=== PATIENT | male | born 1975 | race African-American/Black ===

== ENCOUNTER 2018-08-12 10:31 | Emergency (ER) | payer SELFPAY | END 2018-08-12 11:11 | disposition home or self-care (01) | LOC: SCSER 10:31 | DX: K43.9 Ventral hernia without obstruction or gangrene (principal); I10 Essential (primary) hypertension; Z86.73 Personal history of transient ischemic attack (TIA), and cerebral infarction without residual deficits; F17.210 Nicotine dependence, cigarettes, uncomplicated | CPT/HCPCS: 99283 ==

== ENCOUNTER 2020-02-18 05:55 | Day surgery (SDC) | payer SELFPAY ==
[2020-02-17 09:45] VITALS: BMI 38.2
[2020-02-18] MEDS ORDERED: Fentanyl 100 MCG/2 ML VIAL ONE ×4 (06:19→09:11)
[2020-02-18] MEDS ORDERED: Lidocaine 1% w/Epinephrine 1:100K 20 ML VIAL ONE (06:33)
[2020-02-18] MEDS ORDERED: Bupivacaine 0.25% HCL 30 ML VIAL ONE (06:33)
[2020-02-18] MEDS ORDERED: Dexmedetomidine 200 MCG/2 ML VIAL ONE (07:28)
[2020-02-18] MEDS ORDERED: SUGAMMADEX SODIUM 200 MG/2 ML VIAL ONE (08:30)
--- NOTE | 2020-02-18 08:53 | OP ---
DATE OF PROCEDURE: 02/18/2020 PREOPERATIVE DIAGNOSES: Ventral hernia and umbilical hernia. POSTOPERATIVE DIAGNOSES: Ventral hernia and umbilical hernia. PROCEDURES PERFORMED: Ventral and umbilical hernia repair, laparoscopic da [employer] robot. ANESTHESIA: General. ESTIMATED BLOOD LOSS: Minimal. COMPLICATIONS: None. DESCRIPTION OF PROCEDURE: The patient was taken to the operating room and laid supine on the operating room table. After general anesthetic was obtained, a Neves was placed. The abdomen was shaved, prepped, and draped in a sterile fashion. Left subcostal 5-mm Optiview trocar was placed in usual fashion without injury. High-flow pneumoperitoneum was obtained. Left and right abdominal 8-mm robot ports were placed. The 5-mm subcostal switched out to 11 mm balloon trocar. All ports were docked to the robot. Surgeon goes to the console. The falciform was taken down exposing an epigastric hernia. The preperitoneal fat was dissected off the back of the fascia. Dissection was taken down all the way toward the umbilicus, where the posterior peritoneum was pulled down exposing two additional small hernias and all the preperitoneal fat was reduced out of the hernias. The hernias were closed using running 0 V-Loc. It took two sutures to close all three holes. These were removed from the abdomen and accounted for. An 8-cm Ventralex ST mesh was marked and brought into the sterile field and placed in the abdomen. The exposed mesh portion was placed up against the posterior fascia. The nonadherent side was left down against the abdominal contents. This was sewn to the posterior fascia over the above repair using 2-0 V-Loc suture. All needles were removed from the abdomen and accounted for. There was no injury to any intraabdominal structures. All ports were infiltrated using local anesthetic and removed. 4-0 Monocryl and Dermabond were used to close all skin incisions. The patient was sent to Recovery in stable condition. All instrument counts, needle counts, and lap counts were correct. Job ID: [id number]
[2020-02-18] MEDS ORDERED: Morphine 2 MG/ML VIAL ONE ×2 (09:38→10:05)
[2020-02-18] MEDS ORDERED: HYDROcodone/Acetaminophen 5/325 mg Tablet ONE (10:50)
[2020-02-18] MEDS ORDERED: PROPOFOL 200 MG/20 ML VIAL ONE (11:21)
[2020-02-18] MEDS ORDERED: Rocuronium Bromide 10 MG/ML (10ML VIAL) ONE (11:21)
[2020-02-18] MEDS ORDERED: Ketorolac Tromethamine 30 MG/ML VIAL ONE (11:21)
[2020-02-18] MEDS ORDERED: Glycopyrrolate 0.2 MG/ML 5 ML SYRINGE ONE (11:21)
[2020-02-18] MEDS ORDERED: Ondansetron PF 4 MG/2 ML Vial ONE (11:21)
[2020-02-18] MEDS ORDERED: Lidocaine 1% PF 5 ML VIAL ONE (11:21)
[2020-02-18] MEDS ORDERED: ePHEDrine 50 MG/ML VIAL ONE (11:21)
[2020-02-18] MEDS ORDERED: Dexamethasone 20 MG/5 ML VIAL ONE (11:21)
== END 2020-02-18 12:00 | disposition home or self-care (01) ==
LOC: SDC 05:55
PROVIDERS: ATTEND Surgery
PROC: 0WQF4ZZ Repair Abdominal Wall, Percutaneous Endoscopic Approach (ICD-10-PCS; principal; 2020-02-18)
DX: K43.9 Ventral hernia without obstruction or gangrene (principal); K42.9 Umbilical hernia without obstruction or gangrene; E11.9 Type 2 diabetes mellitus without complications; E78.00 Pure hypercholesterolemia, unspecified; I10 Essential (primary) hypertension; F17.200 Nicotine dependence, unspecified, uncomplicated; Z79.84 Long term (current) use of oral hypoglycemic drugs; Z79.899 Other long term (current) drug therapy
CPT/HCPCS: J0690; J1100; J1885; J2270; J2405; J2704; J3010; J3490; S0020

== ENCOUNTER 2025-01-12 11:08 | Inpatient (IN) | payer OTHER, SELFPAY ==
[2025-01-12 13:42] LABS: #Basophils 0.03 10x3/uL (0.0-0.2); #Eosinophils 0.03 10x3/uL (0.0-0.7); #Monocytes 0.45 10x3/uL (0.11-0.59); #Neutrophils 3.26 10x3/uL (1.40-6.50); %Basophils 0.6 % (0.0-1.0); %Eosinophils 0.6 % (0.0-10.0); %Lymphocytes 26.5 % (21.0-51.0); %Monocytes 8.7 % (0.0-10.0); %Neutrophils 63.0 % (42.0-75.0); Hematocrit 44.3 % (42.0-52.0); Hemoglobin 14.6 g/dL (14.0-18.0); Mean Corpuscular Hemoglobin 25.7 pg (27.0-31.0); Mean Corpuscular Volume 78.0 fL (78.0-98.0); Platelet Count 212 10x3/uL (130-400); Red Blood Cell (RBC) Count 5.68 mill/uL (4.70-6.10); White Blood Cell (WBC) Count 5.17 10x3/uL (4.8-10.8)
[2025-01-12] MEDS ORDERED: Nitroglycerin 2% Ointment 1 INCH/1 GM Packet ONE (13:46)
[2025-01-12] MEDS ORDERED: Nitroglycerin 0.4 MG TAB 1 EACH ONE (13:51)
[2025-01-12 14:04] LABS: ALT (SGPT) 37 U/L (Less than 45); AST (SGOT) 23 U/L (11-34); Albumin 3.9 g/dL (3.1-4.5); Alkaline Phosphatase 64 U/L (40-110); Anion Gap 16 mmol/L (10-20); BUN (Urea Nitrogen) 15 mg/dL (8.9-20.6); Bilirubin, Total 0.3 mg/dL (0.3-1.2); Calc. Creatinine Clearance 0 mL/min (70-130); Calcium 9.4 mg/dL (7.8-10.44); Carbon Dioxide 23 mmol/L (22-29); Chloride 100 mmol/L (98-107); Globulin 4.1 g/dL (2.4-3.5); Glucose 375 mg/dL (70-105); Potassium 4.5 mmol/L (3.5-5.1); Sodium 134 mmol/L (136-145)
[2025-01-12 14:10] LABS: Troponin I 0.017 ng/mL (< 0.028)
[2025-01-12] MEDS ORDERED: hydrALAZINE 20 MG/ML VIAL ONE ×2 (14:43→15:39)
[2025-01-12 15:49] LABS: Bacteria/HPF None Seen HPF (None Seen); CAUTI Indications for Culture Dysuria,urgency,freq; Glucose, Urine (Dipstick) Greater than 1000 mg/dL (Negative); Leukocyte 75 Leu/uL (Negative); Protein, Urine (Dipstick) 10 mg/dL (Neg-Trace); RBC/HPF 0-3 HPF (0-3); Specific Gravity, Urine 1.042 (1.002-1.036); Yeast-Budding 2+ HPF (None Seen); Yeast-Hyphae Rare HPF (None Seen)
[2025-01-12 15:51] LABS: Urine Culture Reflex No No
[2025-01-12 16:21] LABS: INR-International Normal Ratio 0.9; PTT 27.1 sec (22.9-36.1); Prothrombin Time 11.9 sec (12.0-14.7)
[2025-01-12 16:53] LABS: Troponin I 0.022 ng/mL (< 0.028)
[2025-01-12] MEDS ORDERED: Glucagon 1 MG/ML KIT IM PRN (18:35)
[2025-01-12] MEDS ORDERED: Dextrose 50% Abboject 50 ML SYRINGE SLOW IVP PRN (18:35)
[2025-01-12] MEDS ORDERED: Ondansetron PF 4 MG/2 ML Vial IVP PRN (18:35)
[2025-01-12 19:59] VITALS: BMI 36.8
[2025-01-12] MEDS: Acetaminophen 325 MG TAB PO PRN (20:38)
[2025-01-12] MEDS: Lisinopril 10 MG TAB PO SCH (21:49)
[2025-01-12 23:34] LABS: Troponin I 0.022 ng/mL (< 0.028)
[2025-01-12] MEDS: Ibuprofen 600 MG TAB PO SCH (23:50)
[2025-01-13 05:08] LABS: #Basophils Less than 0.03 10x3/uL (0.0-0.2); #Eosinophils 0.03 10x3/uL (0.0-0.7); #Monocytes 0.60 10x3/uL (0.11-0.59); #Neutrophils 4.08 10x3/uL (1.40-6.50); %Basophils 0.3 % (0.0-1.0); %Eosinophils 0.5 % (0.0-10.0); %Lymphocytes 24.1 % (21.0-51.0); %Monocytes 9.6 % (0.0-10.0); %Neutrophils 65.2 % (42.0-75.0); Hematocrit 42.5 % (42.0-52.0); Hemoglobin 13.2 g/dL (14.0-18.0); Mean Corpuscular Hemoglobin 25.0 pg (27.0-31.0); Mean Corpuscular Volume 80.5 fL (78.0-98.0); Platelet Count 214 10x3/uL (130-400); Red Blood Cell (RBC) Count 5.28 mill/uL (4.70-6.10); White Blood Cell (WBC) Count 6.26 10x3/uL (4.8-10.8)
[2025-01-13 05:37] LABS: Anion Gap 14 mmol/L (10-20); BUN (Urea Nitrogen) 20 mg/dL (8.9-20.6); Calc. Creatinine Clearance 138 mL/min (70-130); Calcium 9.4 mg/dL (7.8-10.44); Carbon Dioxide 21 mmol/L (22-29); Cardiac Risk 6.3 (Less than 4.5); Chloride 103 mmol/L (98-107); Cholesterol 241 mg/dl (< 200 Desired); Glucose 347 mg/dL (70-105); HDL Cholesterol 38 mg/dL (>60 Neg Risk); LDL Cholesterol, Calculated 161 mg/dL; Potassium 4.1 mmol/L (3.5-5.1); Sodium 134 mmol/L (136-145); Triglycerides 212 mg/dL (Less than 150)
[2025-01-13] MEDS: Lisinopril 10 MG TAB PO SCH (08:35)
[2025-01-13] MEDS: Enoxaparin 40 MG (0.4 mL) SYRINGE SC SCH (08:35)
[2025-01-13] MEDS: Insulin Glargine 30 UNITS/0.3 ML VIAL SC SCH ×2 (08:36→21:14)
[2025-01-13] MEDS ORDERED: Insulin Glargine 30 UNITS/0.3 ML VIAL SC SCH (21:00)
[2025-01-14] MEDS: Insulin Glargine 30 UNITS/0.3 ML VIAL SC SCH (08:42)
[2025-01-14] MEDS: Lisinopril 20 MG TAB PO SCH (08:43)
[2025-01-14] MEDS: metFORMIN 500 MG TAB PO SCH (08:44)
[2025-01-14] MEDS: Aspirin 81 mg Enteric Coated Tablet PO SCH (08:44)
[2025-01-15 05:51] LABS: Anion Gap 12 mmol/L (10-20); BUN (Urea Nitrogen) 16 mg/dL (8.9-20.6); Calc. Creatinine Clearance 156 mL/min (70-130); Calcium 8.9 mg/dL (7.8-10.44); Carbon Dioxide 23 mmol/L (22-29); Chloride 105 mmol/L (98-107); Glucose 186 mg/dL (70-105); Potassium 3.8 mmol/L (3.5-5.1); Sodium 136 mmol/L (136-145)
[2025-01-15] MEDS ORDERED: Lisinopril 20 MG TAB PO SCH (08:21)
[2025-01-15] MEDS: Lisinopril 20 MG TAB PO SCH (08:47)
[2025-01-15] MEDS: Insulin Glargine 30 UNITS/0.3 ML VIAL SC SCH (08:48)
[2025-01-15 11:48] VITALS: BP 148/99; TEMP 97.3
== END 2025-01-15 13:00 | disposition home or self-care (01) | DRG 305 ==
LOC: ERS 11:08 → OBS 19:30 → OBSVTOIN 01-13 13:17
PROVIDERS: ADMIT Internal Medicine; ATTEND Family Medicine
DX: I16.0 Hypertensive urgency (principal); I10 Essential (primary) hypertension; Z98.890 Other specified postprocedural states; F17.210 Nicotine dependence, cigarettes, uncomplicated; Z82.49 Family history of ischemic heart disease and other diseases of the circulatory system; Z83.3 Family history of diabetes mellitus; F12.10 Cannabis abuse, uncomplicated; E78.5 Hyperlipidemia, unspecified; E11.65 Type 2 diabetes mellitus with hyperglycemia; Z91.199 Patient's noncompliance with other medical treatment and regimen due to unspecified reason; Z79.82 Long term (current) use of aspirin; Z79.899 Other long term (current) drug therapy; Z79.84 Long term (current) use of oral hypoglycemic drugs
CPT/HCPCS: 36415; 36416; 70450; 71045; 80048; 80053; 80061; 81001; 83036; 83880; 84484; 85025; 85610; 85730; 93005; 96372; 96374; 96375; 96376; G0378; J0360; J1650; J1815; J2270